=== PATIENT | male | born 1950 | race Caucasian/White ===

== ENCOUNTER 2016-05-26 14:29 | Emergency (ER) | payer OTHER, BC ==
[~2016-05-26] VITALS: Ht 188 cm; Wt 90.2 kg
[~2016-05-26 14:29] MED LIST: ASPI-321 OR; ATEN50TA8 PO; HYDR-5688 PO; HYDR12.55 OR
[2016-05-26 14:37] VITALS: TEMP 36.4; Ht 188 cm; Wt 90.2 kg
[2016-05-26] MEDS ORDERED: SODIUM CHLORIDE 0.9% 1000ML 1,000 ML IV STA (14:49)
--- NOTE | 2016-05-26 15:12 | DIAGNOSTIC IMAGING REPORT ---
CHEST ONE VIEW PORTABLE HISTORY: EVALUATE ALTERED MENTAL STATUS/WEAKNESS COMPARISON: None. FINDINGS: The lungs are clear. Cardiac silhouette is normal in size. No pleural effusions. No pneumothorax. IMPRESSION: No acute process. Electronically signed by: Ceferino Dee M.D. 05/26/2016 3:10 PM Dictated Date/Time: 05/26/2016 3:09 PM
[2016-05-26 15:17] LABS: BASO % 0.3 %; BASO ABS # 0.02 K/uL (0-0.2); COMPLETE YES; EOS % 0.7 %; HEMATOCRIT 44.1 % (42-52); IG% 0.7 %; LYMPH ABS # 1.13 K/uL (1.2-3.4); MEAN CELL VOLUME 83.4 fL (80-100); MEAN CORPUSCULAR HEMOGLOBIN 29.1 pg (25-34); MEAN CORPUSCULAR HGB CONC 34.9 g/dl (32-36); MEAN PLATELET VOLUME 8.6 fL (7.4-10.4); MONO % 3.7 %; NEUT % 79.6 %; PLATELET COUNT 165 K/uL (130-400); RED BLOOD COUNT 5.29 M/uL (4.7-6.1); WHITE BLOOD COUNT 7.54 K/uL (4.8-10.8)
[2016-05-26 15:25] LABS: INR 1.1 (0.9-1.1); PARTIAL THROMBOPLASTIN RATIO 1.1; PROTHROMBIN TIME (PATIENT) 11.8 SECONDS (9.0-12.0)
[2016-05-26 15:49] LABS: ALT/SGPT 31 U/L (12-78); AST/SGOT 19 U/L (15-37); BLOOD UREA NITROGEN 22 mg/dl (7-18); BUN/CREATININE RATIO 20.1 (10-20); CALCIUM 9.2 mg/dl (8.5-10.1); CARBON DIOXIDE 29 mmol/L (21-32); CHLORIDE 104 mmol/L (98-107); GLUCOSE 158 mg/dl (70-99); MAGNESIUM 2.1 mg/dl (1.8-2.4); POTASSIUM 3.7 mmol/L (3.5-5.1); SODIUM 141 mmol/L (136-145)
[2016-05-26 15:57] LABS: ALKALINE PHOSPHATASE 86 U/L (45-117); CKMB/CK RATIO 1.4 (0-3.0)
[2016-05-26 16:15] LABS: URINE APPEARANCE CLEAR (CLEAR); URINE BILIRUBIN NEG (NEG); URINE COLOR YELLOW; URINE EPITHELIAL CELL AUTO 0-5 /lpf (0-5); URINE NITRITE NEG (NEG); URINE SPECIFIC GRAVITY 1.008 (1.000-1.030); UROBILINOGEN NEG (NEG); ZZUR CULT IF INDIC CLEAN CATCH NO
[2016-05-26 16:18] LABS: REVIEW REQ? NO
[2016-05-26 16:19] LABS: MANUAL MICROSCOPIC REQUIRED? NO
--- NOTE | 2016-05-26 17:10 | EMERGENCY ROOM VISIT NOTE ---
History Report prepared by Ramila: Nery Maddox Under the Supervision of: Dr. Td Summers D.O. First contact with patient: 14:44 Chief Complaint: SYNCOPE (NEAR SYNCOPE) Stated Complaint: HIGH BP, NOT FEELING WELL, DIZZY Nursing Triage Summary: Triage note: pt reports he has had a headache x 2 days. pt reports today he had episode where he felt like he was going to pass out and he was dizzy. pt reports he took his bp at home and it was elevated. pt reports at this time continued dizziness. History of Present Illness The patient is a 66 year old male who presents to the Emergency Room with complaints of intermittent dizziness that began two days ago. The patient describes his dizziness as a room spinning sensation. He states that this has happened in the past, and states that all of his testings came back normal. The patient states that he had a normal stress test and normal cardiac catheterization. He states that today he laid on the floor because it doesn't seem to bother him as much. The patient states that he has been hypertensive for the last few days. He additionally notes that he stopped taking his Mexitil. The patient notes a headache for the past two days, but denies any nausea.. Source of History: patient Onset: two days ago Position: other (global) Quality: other (dizziness) Timing: intermittent Modifying Factors (Relieving): other (lying flat) Associated Symptoms: + headache, No nausea Review of Systems See HPI for pertinent positives & negatives. A total of 10 systems reviewed and were otherwise negative. Past Medical & Surgical Medical Problems: (1) Hypertension (2) Kidney stone Family History Cancer Diabetes mellitus Gallbladder disease Hypertension Social History Smoking Status: Never Smoker Smokeless Tobacco Use: No Alcohol Use: none Marital Status: Housing Status: lives with significant other Occupation Status: employed Current/Historical Medications Scheduled Aspirin (Aspirin Adult Low Strengt), 81 MG OR DAILY Atenolol (Tenormin), 50 MG PO DAILY Hydrochlorothiazide (Hydrochlorothiazide), 12.5 MG OR DAILY Hydrocodone/Acetaminophen 5MG/325MG (Palmer 5MG/325MG), 1 TABLET PO TID PRN Physical Exam Vital Signs Date Time Temp Pulse Resp B/P Pulse Ox O2 Delivery O2 Flow Rate FiO2 05/26/16 16:53 52 18 203/98 98 Room Air 05/26/16 15:08 66 05/26/16 15:04 61 16 181/97 99 69 159/99 70 145/93 05/26/16 14:37 36.4 79 18 165/88 99 Room Air Physical Exam VITAL SIGNS: were reviewed as above. GENERAL:Non-toxic in appearance. SKIN: Warm dry and pink. HEAD: Normocephalic and atraumatic. OROPHARYNX: Is clear and moist NECK: Supple without lymphadenopathy or meningismus. LUNGS: clear. HEART: Regular rate and rhythm. ABDOMEN: Soft and nontender. EXTREMITIES: Warm and well perfused. NEUROLOGICALLY: Awake alert and oriented without focal deficit. Cranial nerves 2 -12 are intact. There is no pronator drift. Cerebellar testing is within normal limits. There is no nystagmus. There is no facial droop. Speech is clear. Vision is grossly normal. MUSCULOSKELETAL: Good muscle tone. No evidence of trauma. Medical Decision & Procedures ER Provider Diagnostic Interpretation: X ray results and stated below per my interpretation and radiology interpretation. CHEST ONE VIEW PORTABLE HISTORY: EVALUATE ALTERED MENTAL STATUS/WEAKNESS COMPARISON: None. FINDINGS: The lungs are clear. Cardiac silhouette is normal in size. No pleural effusions. No pneumothorax. IMPRESSION: No acute process. Electronically signed by: Ceferino Dee M.D. 05/26/2016 3:10 PM Dictated Date/Time: 05/26/2016 3:09 PM Laboratory Results 05/26/16 14:55 Red Blood Count 5.29, Mean Corpuscular Volume 83.4, Mean Corpuscular Hemoglobin 29.1, Mean Corpuscular Hemoglobin Concent 34.9, Mean Platelet Volume 8.6, Neutrophils (%) (Auto) 79.6, Lymphocytes (%) (Auto) 15.0, Monocytes (%) (Auto) 3.7, Eosinophils (%) (Auto) 0.7, Basophils (%) (Auto) 0.3, Neutrophils # (Auto) 6.01, Lymphocytes # (Auto) 1.13, Monocytes # (Auto) 0.28, Eosinophils # (Auto) 0.05, Basophils # (Auto) 0.02 05/26/16 14:55 Test 05/26/16 14:55 05/26/16 16:00 White Blood Count 7.54 K/uL (4.8-10.8) Red Blood Count 5.29 M/uL (4.7-6.1) Hemoglobin 15.4 g/dL (14.0-18.0) Hematocrit 44.1 % (42-52) Mean Corpuscular Volume 83.4 fL (80-100) Mean Corpuscular Hemoglobin 29.1 pg (25-34) Mean Corpuscular Hemoglobin Concent 34.9 g/dl (32-36) Platelet Count 165 K/uL (130-400) Mean Platelet Volume 8.6 fL (7.4-10.4) Neutrophils (%) (Auto) 79.6 % Lymphocytes (%) (Auto) 15.0 % Monocytes (%) (Auto) 3.7 % Eosinophils (%) (Auto) 0.7 % Basophils (%) (Auto) 0.3 % Neutrophils # (Auto) 6.01 K/uL (1.4-6.5) Lymphocytes # (Auto) 1.13 K/uL (1.2-3.4) Monocytes # (Auto) 0.28 K/uL (0.11-0.59) Eosinophils # (Auto) 0.05 K/uL (0-0.5) Basophils # (Auto) 0.02 K/uL (0-0.2) RDW Standard Deviation 37.8 fL (36.4-46.3) RDW Coefficient of Variation 12.6 % (11.5-14.5) Immature Granulocyte % (Auto) 0.7 % Immature Granulocyte # (Auto) 0.05 K/uL (0.00-0.02) Prothrombin Time 11.8 SECONDS (9.0-12.0) Prothromb Time International Ratio 1.1 (0.9-1.1) Activated Partial Thromboplast Time 27.8 SECONDS (21.0-31.0) Partial Thromboplastin Ratio 1.1 Anion Gap 8.0 mmol/L (3-11) Est Creatinine Clear Calc Drug Dose 74.8 ml/min Estimated GFR () 79.5 Estimated GFR (Non- 68.6 BUN/Creatinine Ratio 20.1 (10-20) Calcium Level 9.2 mg/dl (8.5-10.1) Magnesium Level 2.1 mg/dl (1.8-2.4) Total Bilirubin 0.4 mg/dl (0.2-1) Direct Bilirubin < 0.1 mg/dl (0-0.2) Aspartate Amino Transf (AST/SGOT) 19 U/L (15-37) Alanine Aminotransferase (ALT/SGPT) 31 U/L (12-78) Alkaline Phosphatase 86 U/L (45-117) Total Creatine Kinase 113 U/L (39-308) Creatine Kinase MB 1.6 ng/ml (0.5-3.6) Creatine Kinase MB Ratio 1.4 (0-3.0) Troponin I < 0.015 ng/ml (0-0.045) Total Protein 7.6 gm/dl (6.4-8.2) Albumin 4.1 gm/dl (3.4-5.0) Lipase 173 U/L (73-393) Thyroid Stimulating Hormone (TSH) 1.340 uIu/ml (0.300-4.500) Urine Color YELLOW Urine Appearance CLEAR (CLEAR) Urine pH 6.0 (4.5-7.5) Urine Specific [place] 1.008 (1.000-1.030) Urine Protein NEG (NEG) Urine Glucose (UA) NEG (NEG) Urine Ketones NEG (NEG) Urine Occult Blood NEG (NEG) Urine Nitrite NEG (NEG) Urine Bilirubin NEG (NEG) Urine Urobilinogen NEG (NEG) Urine Leukocyte Esterase NEG (NEG) Urine WBC (Auto) 0 /hpf (0-5) Urine RBC (Auto) 0-4 /hpf (0-4) Urine Hyaline Casts (Auto) 0 /lpf (0-5) Urine Epithelial Cells (Auto) 0-5 /lpf (0-5) Urine Bacteria (Auto) NEG (NEG) Laboratory results as stated above per my review. Medications Administered Medications (Trade) Dose Ordered Sig/[place] Route Start Time Stop Time Status Last Admin Dose Admin Sodium Chloride (Nss 1000ml) 1,000 ml @ 200 mls/hr Q5H STAT IV 05/26/16 14:49 05/26/16 19:48 05/26/16 14:49 200 MLS/HR ECG Indication: other (dizziness) Rate (beats per minute): 62 Rhythm: normal sinus Findings: RBBB, no acute ischemic change, no ectopy ED Course 1444: Previous medical records were reviewed. The patient was evaluated in room A10. A complete history and physical examination was performed. 1449: Ordered Sodium Chloride 1000 ml @ 200 mls/hr IV. 1700: I reevaluated the patient and he is feeling better. I discussed the exam findings with him and I discussed the treatment plan. He verbalized complete understanding and agreement. He is ready to go home. Medical Decision Differential includes acute coronary syndrome, myocardial infarction, CVA, TIA, anemia, infection, pneumonia, UTI, pyelonephritis, poor nutrition, dehydration, electrolyte disturbance,hypoglycemia. This is a 66-year-old male who presents to the ED with a chief complaint of lightheadedness. The patient states that this has happened to him once before. It occurred today while sitting. He states that it occurs every time he moves around. The patient states that he laid on the floor and it seemed to get better. His blood pressure has also been high for the past couple of days. His vital signs here are stable. His neurological exam and physical exam are normal. Orthostatic vital signs are negative. Patient's blood pressure has been fluctuating but is moderately high. His CBC is normal. His BUN is 22. Troponin was negative. TSH was normal. EKG shows a normal sinus rhythm with a right bundle branch block. The patient was told results the test. He was reassessed. His last blood pressure was 137/106. The patient desires to go home. He was told to follow-up with his doctor next week to have his blood pressure rechecked. He is felt to be stable for discharge. Impression Primary Impression: Hypertension Additional Impression: Dizziness Scribe Attestation The scribe's documentation has been prepared under my direction and personally reviewed by me in its entirety. I confirm that the note above accurately reflects all work, treatment, procedures, and medical decision making performed by me. Departure Information Dispostion Home / Self-Care Referrals Harrison Rojas M.D. (PCP) Forms HOME CARE DOCUMENTATION FORM, IMPORTANT VISIT INFORMATION Patient Instructions My [facility] Additional Instructions Have your blood pressure rechecked next week. Return to the emergency department for new or worsening symptoms. Problem Qualifiers
[2016-05-26 17:28] VITALS: BP 149/90; PULSE 56; O2SAT 96
== END 2016-05-26 17:29 | disposition home or self-care (01) ==
LOC: C.EDB 14:31 → C.EDA 17:29
DX: I10 Essential (primary) hypertension (principal); R42 Dizziness and giddiness; I45.10 Unspecified right bundle-branch block; Z87.442 Personal history of urinary calculi; Z79.82 Long term (current) use of aspirin; Z79.899 Other long term (current) drug therapy; Z80.9 Family history of malignant neoplasm, unspecified; Z83.3 Family history of diabetes mellitus; Z83.79 Family history of other diseases of the digestive system; Z82.49 Family history of ischemic heart disease and other diseases of the circulatory system

== ENCOUNTER → 2016-11-10 | Outpatient (CLI) | payer OTHER, BC ==
--- NOTE | 2016-11-10 07:37 | DIAGNOSTIC IMAGING REPORT ---
(BARIUM SWALLOW) ESOPHAGUS CLINICAL HISTORY: R13.10 [id number] COMPARISON STUDY: None FLUOROSCOPY TIME: 1.6 minutes. FINDINGS: Patient initiated swallowing function well. No evidence for aspiration or neuromuscular dysfunction. Esophagus is normal in course and caliber. Gastro esophageal junction is unremarkable. Minimal gastroesophageal reflux. IMPRESSION: Normal swallowing function. Minimal reflux. Electronically signed by: Jorgito Simon M.D. 11/10/2016 7:36 AM Dictated Date/Time: 11/10/2016 7:32 AM
== END | disposition home or self-care (01) ==
LOC: C.RAD 06:41
PROVIDERS: ATTEND Physician Assistant
DX: R13.10 Dysphagia, unspecified (principal)

== ENCOUNTER → 2016-11-13 | Outpatient (CLI) | payer OTHER, BC ==
[~2016-11-13] MED LIST changes: +OPTIRAY 320 IV PRN
--- NOTE | 2016-11-13 12:38 | DIAGNOSTIC IMAGING REPORT ---
CT OF THE CHEST WITH IV CONTRAST CLINICAL HISTORY: Cough. Dysphagia. COMPARISON STUDY: Chest radiograph August 01, 2016 and May 26, 2016. TECHNIQUE: Following IV administration of 115 mL of Optiray-320, helical axial images of the chest were obtained. Sagittal and coronal reconstructions were viewed as well as maximal intensity projections on an independent 3-D workstation FINDINGS: No enlarged axillary, mediastinal or hilar lymph nodes are present. The size of the heart is normal. There is no pericardial effusion. Central airways are patent. There is no consolidation to suggest pneumonia. There are no suspicious pulmonary nodules. There is a 3 mm calcified granuloma within the right upper lobe. No pneumothorax or pleural effusion is present. There is a bone island within the T10 vertebral body. There may be a partially visualized hypodense lesion within the upper to midpole of the left kidney. This measures approximately 2.7 cm within visualized portions. Note is made of a 1.1 cm hyperdense lesion arising from the upper pole of the right kidney. A few hypodense subcentimeter right upper pole renal lesions favor cysts. Oral contrast within portions of the colon is from recent barium swallow. IMPRESSION: 1. No acute findings within the chest. 2. 1.1 cm hyperdense lesion arising from the upper pole of the right kidney. This could reflect a solid renal lesion or hyperdense cyst. Possible partially visualized hypodense left renal lesion. A follow-up renal protocol CT is recommended to evaluate these findings. Electronically signed by: Bogdan Henson M.D. 11/13/2016 12:36 PM Dictated Date/Time: 11/13/2016 12:24 PM
== END | disposition home or self-care (01) ==
LOC: C.CTS 11:32
PROVIDERS: ATTEND Physician Assistant
DX: R13.10 Dysphagia, unspecified (principal); N28.9 Disorder of kidney and ureter, unspecified

== ENCOUNTER → 2016-12-14 | Outpatient (CLI) | payer OTHER, BC ==
--- NOTE | 2016-12-14 13:38 | DIAGNOSTIC IMAGING REPORT ---
ABD/PELVIS IV CONTRAST ONLY HISTORY: 66 years-old Male R93.8 follow-up exam status post recent chest CT which demonstrated a hyperdense lesion from the superior pole right kidney. COMPARISON: CT chest 11/13/2016 TECHNIQUE: Multiple axial CT images of the abdomen and pelvis were obtained following the intravenous administration of 92 mL Optiray 320. A dose lowering technique was used consistent with the principals of SAMMIE. FINDINGS: There is mild left hemidiaphragm elevation. The lung bases appear clear. There is no pneumoperitoneum. The imaged inferior cardiac chambers are unremarkable. Nonspecific low attenuating 5 mm lesion involves the anterior right hepatic lobe. Statistically is favor a cyst or hemangioma. Similar appearing 4 mm lesion is noted within the inferior hepatic lobe. The spleen, pancreas and right adrenal gland are unremarkable. There is nodular thickening of the left renal gland suggesting hyperplasia. Gallbladder is contracted. There is a 3 mm nonobstructing calculus of the interpolar left kidney. There are several parenchymal and renal sinus cysts seen on the left, largest of which measures 3.4 x 4.0 cm. There is a partially calcified 5 mm cyst of the posterior inferior pole left kidney. There is a nonobstructing 7 x 3 mm calculus of the interpolar right kidney. 1.2 x 1.1 cm round lesion of the superior pole right kidney demonstrates [place] of 64. Similarly, there is a partially exophytic circumscribed lesion of the lateral aspect interpolar right kidney measuring 2.3 x 2.2 cm with Hounsfield unit of 79. No hydronephrosis. Urinary bladder is unremarkable. The prostate is enlarged with coarse parenchymal calcifications seen centrally. There is a small fat filled left inguinal hernia. Abdominal aorta is normal in course and caliber mild left carotid plaquing. No bulky retroperitoneal adenopathy. There is no bowel obstruction. Scattered noninflamed colonic diverticula are noted. Soft tissues are unremarkable. Sclerotic lesion of the T10 vertebral body suggests bone island. Hemangiomas are present at T11 and T12. Moderate intervertebral disc space narrowing and posterior disc osteophyte complex seen at L5-S1. IMPRESSION: 1. There are two circumscribed indeterminate hyperdense lesions of the right kidney, one of which involves the superior pole measuring 1.2 cm seen on comparison chest CT and the other involves the lateral aspect interpolar right kidney, 2.3 cm. These are indeterminate without noncontrast and delayed images available. Correlate with renal protocol CT as previously recommended. 2. Bilateral nonobstructing renal calculi and multiple renal cysts are present. 3. Colonic diverticulosis without diverticulitis. The above report was generated using voice recognition software. It may contain grammatical, syntax or spelling errors. Electronically signed by: Len Ozuna M.D. 12/14/2016 1:37 PM Dictated Date/Time: 12/14/2016 1:26 PM
== END | disposition home or self-care (01) ==
LOC: C.CTS 11:31
PROVIDERS: ATTEND Physician Assistant
DX: R93.8 Abnormal findings on diagnostic imaging of other specified body structures (principal); N28.9 Disorder of kidney and ureter, unspecified; N20.0 Calculus of kidney; K57.90 Diverticulosis of intestine, part unspecified, without perforation or abscess without bleeding